=== PATIENT | female | born 1955 | race American Indian/Alaskan Native ===

== ENCOUNTER 2018-06-01 15:16 | Emergency (ER) | payer MEDICARE, OTHER ==
--- NOTE | 2018-06-01 15:54 | Emergency Department Report ---
ED Rash HPI - HPI Chief Complaint: Skin Rash Stated Complaint: ITCH Time Seen by Provider: 06/01/18 15:37 Location: Abdomen Suspected Cause: Unknown Rash Symptoms: Yes Itching, No Facial Swelling, No Tongue/Oral Swelling, No Breathing Difficulties, No Choking Sensation, No Wheezing/Dyspnea, No Peeling, No Blistering, No Fever, No Lightheaded, No Malaise, No Myalgias Severity: mild Other History: 62 y o f with no pmh presents with itching rash worse at night. Patient states that she's had similar symptoms before. Patient states she was given steroids and antibiotics which helped her resolve that the rash. ED Review of Systems ROS: Stated complaint: ITCH Other details as noted in HPI Comment: All other systems reviewed and negative ED Past Medical Hx - Past Medical History Previous Medical History?: No Additional medical history: Diverticulitis - Surgical History Past Surgical History?: Yes Additional Surgical History: Hysterectomy. Hernia repair - Social History Smoking Status: Never Smoker Substance Use Type: None - Medications Home Medications: Home Medications Medication Instructions Recorded Confirmed Last Taken Type Prednisone [predniSONE 10 mg 10 mg PO .TAPER #1 tab.ds.pk 04/11/18 Unknown Rx (6-Day Pack, 21 Tabs)] Hydrocortisone [Hydrocortisone 1% 1 applic TP BID #1 lotion 06/01/18 Unknown Rx LOTION] cephALEXin [Keflex] 500 mg PO Q12HR #14 cap 06/01/18 Unknown Rx diphenhydrAMINE [Benadryl CAP] 25 mg PO Q6HR PRN #20 capsule 06/01/18 Unknown Rx Rash Exam - Exam General: Vital signs noted. No distress. Alert and acting appropriately. HEENT: No Periorbital Edema, No Conjuctival Injection, No Chemosis, No Perioral Edema, No Tongue Edema, No Uvular Edema, No Compromised Airway, No Drooling Lungs: Yes Good Air Exchange (Normal Breath Sounds), No Wheezes, No Ronchi, No Stridor, No Cough, No Labored Respirations, No Retractions, No Use of Accessory Muscles, No Other Abnormal Lung Sounds Heart: Yes Regular, No Murmur Other: Positive: Abdomen Normal, Neurologic Normal, Musculoskeletal Normal ED Course Vital Signs 06/01/18 15:40 Temperature 98.9 F Pulse Rate 80 Respiratory 16 Rate Blood Pressure 164/79 O2 Sat by Pulse 98 Oximetry ED Medical Decision Making - Medical Decision Making 62-year-old female presents for a rash. Patient is in no acute respiratory distress. Discussed follow-up with primary care physician as well as connie cleaner. Referrals given Critical care attestation.: If time is entered above; I have spent that time in minutes in the direct care of this critically ill patient, excluding procedure time. ED Disposition Clinical Impression: Rash and nonspecific skin eruption Disposition: TO HOME OR SELFCARE Is pt being admited?: No Does the pt Need Aspirin: No Condition: Stable Instructions: Urticaria (ED), Acute Rash (ED) Additional Instructions: f/u with pcp, Prescriptions: cephALEXin [Keflex] 500 mg PO Q12HR #14 cap diphenhydrAMINE [Benadryl CAP] 25 mg PO Q6HR PRN #20 capsule PRN Reason: Itching Hydrocortisone [Hydrocortisone 1% LOTION] 1 applic TP BID #1 lotion Referrals: RAPHAEL SIDDIQUI MD [Referring] - 3-5 Days [facility] [Outside] - 3-5 Days [facility] [Outside] - 3-5 Days Forms: Work/School Release Form(ED) Time of Disposition: 16:27
== END 2018-06-01 16:37 | disposition home or self-care (01) ==
LOC: ED 15:16
CPT/HCPCS: 99282